=== PATIENT | female | born 1975 | race Hispanic/Latino ===

== ENCOUNTER → 2024-04-12 | Day surgery (SDC) | payer OTHER ==
[~2024-04-12] MED LIST: DEXMEDETOMIDINE HCL 200 MCG/2 ML VIAL ONE; LIDOCAINE HCL 2% LOCAL INJ 5 ML SDV VIAL INJ ONE; PROPOFOL IV EMULSION 10 MG/ML 50 ML VIAL IV ONE
[2024-04-12] MEDS: LACTATED RINGER'S 1,000 ML ONE (09:31)
[2024-04-12 11:40] VITALS: BP 99/54; PULSE 62; RESP 16; O2SAT 97
== END | disposition home or self-care (01) ==
LOC: OR 09:04
PROVIDERS: ATTEND Internal Medicine Gastroenterology
DX: Z12.11 Encounter for screening for malignant neoplasm of colon (principal); D12.2 Benign neoplasm of ascending colon; K64.8 Other hemorrhoids; Z01.810 Encounter for preprocedural cardiovascular examination
CPT/HCPCS: 45385; 93005; J2003; J2704; J7121; 45378